=== PATIENT | male | born 1955 | race Caucasian/White ===

== ENCOUNTER 2020-12-02 15:44 | Emergency (ER) | payer OTHER ==
[~2020-12-02] VITALS: Ht 180.3 cm; Wt 99.8 kg
[2020-12-02 15:55] VITALS: BP_SYST 117
[2020-12-02 16:55] LABS: AMYLASE 48 U/L (0-100); LIPASE 118 U/L (73-393)
[2020-12-02 16:56] LABS: BASOPHILS % (AUTO) 0.2 % (0.0-2.0); HEMATOCRIT 44.1 % (36-54); HEMOGLOBIN 15.2 g/dL (14.0-18.0); LYMPHOCYTES # (AUTO) 0.9 K/uL (1.0-5.5); LYMPHOCYTES % (AUTO) 8.9 % (20.5-51.5); MEAN CORPUSCULAR HEMOGLOBIN 32 pg (27-31); MEAN CORPUSCULAR HGB CONC 35 % (32-36); MEAN CORPUSCULAR VOLUME 93 fL (79.0-98.0); MONOCYTES # (AUTO) 1.4 K/uL (0.0-1.0); MONOCYTES % (AUTO) 13.6 % (1.7-9.3); NEUTROPHILS # (AUTO) 8.2 K/uL (1.8-7.7); NEUTROPHILS % (AUTO) 77.3 % (40.0-70.0); PLATELET COUNT (AUTO) 237 K/uL (130-430); RED BLOOD CELL COUNT(AUTO) 4.74 MIL/uL (4.2-6.2); RED CELL DISTRIBUTION WIDTH 14.5 % (9.0-15.0); WHITE BLOOD COUNT (AUTO) 10.6 K/uL (4.8-10.8)
[2020-12-02 17:06] LABS: CALCIUM 8.3 mg/dL (8.4-11.0); POTASSIUM 3.3 mmol/L (3.5-5.1)
[2020-12-02 17:07] LABS: ALBUMIN 2.6 g/dL (3.4-4.8); CREATININE 1.28 mg/dL (0.55-1.30); TOTAL BILIRUBIN 2.3 mg/dL (0.0-1.0); URIC ACID 6.2 mg/dL (2.4-7.0)
[2020-12-02 17:25] LABS: C-REACTIVE PROTEIN QUANT 25.3 mg/dL (0-0.5); PROTHROMBIN TIME 10.5 SECS (9.5-12.5)
[2020-12-02 17:31] LABS: BILIRUBIN,URINE 2+ (NEGATIVE); BLOOD, URINE 3+ (NEGATIVE); CLARITY/URINE CLEAR (CLEAR); COLOR,URINE YELLOW (YELLOW); GLUCOSE,URINE NEGATIVE (NEGATIVE); KETONES,URINE TRACE (NEGATIVE); LEUKOCYTE ESTERASE ,URINE NEGATIVE (NEGATIVE); NITRITE, URINE POSITIVE (NEGATIVE); PROTEIN URINE 2+ (NEGATIVE)
[2020-12-02 17:36] LABS: UROBILINOGEN,URINE >=8 (0.2-1.0)
[2020-12-02] MEDS ORDERED: IBUP-1969 PO (17:53)
[2020-12-02] MEDS ORDERED: HYDR-3917 PO (17:53)
[2020-12-02] MEDS ORDERED: KETOROLAC TROMETHAMINE 60 MG/2 ML VIAL IM ONE (18:00)
[2020-12-02 18:01] LABS: BACTERIA,URINE MODERATE /HPF (None Seen); RBC,URINE 0-3 /HPF (0-3); WBC,URINE 0-3 /HPF (0-3)
[2020-12-02 18:02] LABS: HYALINE CASTS, URINE 0-10 /LPF (None Seen); MUCUS,URINE 1+ /LPF (None Seen)
[2020-12-02] MEDS ORDERED: NITR-85 PO (18:18)
[2020-12-02] MEDS ORDERED: cefTRIAXone 1 GM in LIDOCAINE 1%, 20 ML MDV 2.1 ML IM ONE (18:30)
[2020-12-02 18:34] VITALS: BP_SYST 117
== END 2020-12-02 18:35 ==
LOC: SED 15:44
DX: S93.401A Sprain of unspecified ligament of right ankle, initial encounter (principal); S83.91XA Sprain of unspecified site of right knee, initial encounter; K70.10 Alcoholic hepatitis without ascites; N39.0 Urinary tract infection, site not specified; Z79.899 Other long term (current) drug therapy; W01.0XXA Fall on same level from slipping, tripping and stumbling without subsequent striking against object, initial encounter; Y93.89 Activity, other specified; Y92.89 Other specified places as the place of occurrence of the external cause; Y99.8 Other external cause status
CPT/HCPCS: 36415; 73560; 73610; 73620; 74176; 76376; 80053; 81000; 82150; 83690; 84550; 85025; 85610; 85730; 86140; 87086; 96372; 99285; J0696; J1885; J2001